=== PATIENT | male | born 1995 | race Native Hawaiian/Other Pacific Islander ===

== ENCOUNTER 2016-10-10 16:15 | Emergency (ER) | payer OTHER ==
[~2016-10-10] VITALS: Ht 172.7 cm; Wt 72.6 kg
[2016-10-10 16:52] LABS: PLATELET COUNT 189 K/uL (142-355)
== END 2016-10-10 17:38 | disposition home or self-care (01) ==
LOC: ED 16:15
DX: S50.862A Insect bite (nonvenomous) of left forearm, initial encounter (principal); L03.114 Cellulitis of left upper limb; W57.XXXA Bitten or stung by nonvenomous insect and other nonvenomous arthropods, initial encounter; Y92.098 Other place in other non-institutional residence as the place of occurrence of the external cause
CPT/HCPCS: 85027; 99282

== ENCOUNTER 2016-12-05 09:13 | Emergency (ER) | payer OTHER ==
[~2016-12-05] VITALS: Ht 172.7 cm; Wt 72.6 kg
[2016-12-05 09:20] VITALS: TEMP 97.7
[2016-12-05 09:51] LABS: PLATELET COUNT 168 K/uL (142-355)
[2016-12-05 10:10] LABS: POTASSIUM 3.9 mmol/L (3.6-5.2); SODIUM 136 mmol/L (136-145)
[2016-12-05 13:17] VITALS: BP 122/82
== END 2016-12-05 13:18 | disposition home or self-care (01) ==
LOC: ED 09:13
DX: R10.9 Unspecified abdominal pain (principal); K52.9 Noninfective gastroenteritis and colitis, unspecified; I88.0 Nonspecific mesenteric lymphadenitis
CPT/HCPCS: 36415; 80053; 82150; 83690; 85027; 96374; 99284; J2405; Q9963

== ENCOUNTER 2021-12-23 10:37 | Emergency (ER) | payer OTHER ==
[~2021-12-23] VITALS: Ht 177.8 cm; Wt 74.8 kg
[2021-12-23 10:50] VITALS: BP 113/75; TEMP 97.4
[2021-12-23 11:34] LABS: POTASSIUM 4.6 mmol/L (3.6-5.2)
[2021-12-23 11:37] LABS: PLATELET COUNT 175 K/uL (142-355)
== END 2021-12-23 11:55 | disposition home or self-care (01) ==
LOC: ED 10:37
PROVIDERS: Hospitalist
DX: K21.9 Gastro-esophageal reflux disease without esophagitis (principal); R11.2 Nausea with vomiting, unspecified
CPT/HCPCS: 80053; 80320; 81002; 83690; 85027; 96372; 99283; J2405